=== PATIENT | female | born 1965 | race Caucasian/White ===

== ENCOUNTER 2017-06-08 10:08 | Emergency (ER) | payer BC ==
[~2017-06-08] VITALS: Ht 157.5 cm; Wt 79.0 kg
[~2017-06-08 10:08] MED LIST: CITA20 PO; FOLI1 PO; LISI-363 PO; METO25 PO; THIA100T PO
[2017-06-08 10:09] VITALS: BP 146/81; PULSE 88; RESP 16; TEMP 98.6; O2SAT 98
--- NOTE | 2017-06-08 11:22 | PD ---
HPI Chief Complaint: Injury Time Seen by Provider: 11:07 Travel History International Travel<30 days: No Contact w/Intl Traveler<30days: No Traveled to known affect area: No History of Present Illness HPI This is a 52-year-old right-hand dominant female who reports a history of diabetes and hypertension. She presents for evaluation of right thumb pain. Symptoms started 2 weeks ago. She reports a throbbing/burning/numbness sensation in her distal right thumb which is constant but worse with palpation or when her right hand is held passively. She reports that 2 weeks ago she was having trouble with an earring stuck in her right ear and she was pressing very forcefully with her right thumb in an effort to dislodge it. She doesn't know if this is related or not. She also reports that on a daily basis she has to work with a [employer] lift which also puts a lot of pressure in her right thumb. She went to an urgent care center today and was referred here for further evaluation. She has no other complaints at this time. PFSH Past Medical History Arthritis: No Asthma: No Autoimmune Disease: No Blood Disorders: No Anxiety: No Depression: Yes Heart Rhythm Problems: No Cancer: No Cardiovascular Problems: Yes High Cholesterol: No Chemotherapy: No Chest Pain: No Congestive Heart Failure: No COPD: No Cerebrovascular Accident: No Diabetes: Yes Endocrine: Yes Gastrointestinal Disorders: Yes GERD: Yes Glaucoma: No Genitourinary: No Headaches: Yes Hiatal Hernia: No Hypertension: Yes Immune Disorder: No Implanted Vascular Access Dvce: No Musculoskeletal: No Neurologic: Yes Psychiatric: Yes Reproductive: No Respiratory: Yes Migraines: Yes Myocardial Infarction: Yes (2 ME'S) Radiation Therapy: No Seizures: Yes Sleep Apnea: No Thyroid Disease: No Ulcer: No PNEUMOCCOCAL Vaccine (Year): 2 ?: Not Menopausal: Yes Past Surgical History Abdominal Surgery: Yes ( cholecystectomy) AICD: No Arteriovenous Shunt: No 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)) Section: Yes Cholecystectomy: Yes Ear Surgery: No Endocrine Surgery: No Eye Surgery: No Genitourinary Surgery: No Gynecologic Surgery: Yes (c- section x2) Insulin Pump: No Joint Replacement: No Oral Surgery: No Pacemaker: No Thoracic Surgery: No Other Surgery: Yes (GB REMOVED 17 YRS AGO) Social History Alcohol Use: Yes Tobacco Use: Yes Substance Use: No Allergies-Medications (Allergen,Severity, Reaction): Coded Allergies: morphine (Unverified Allergy, Severe, 06/08/17) Reported Meds & Prescriptions Reported Meds & Active Scripts Active Clindamycin (Clindamycin HCl) 300 Mg Cap 300 Mg PO TID Lisinopril 20 mg (Lisinopril) 20 Mg Tab 1 Tab PO BID Metoprolol Tartrate 25 mg (Metoprolol Tartrate) 25 Mg Tab 25 Mg PO Q12HR Thiamine HCl 100 Mg Tab 100 Mg PO DAILY Folate 1 Mg Tab (Folic Acid) 1 Mg Tab 1 Mg PO DAILY Celexa 20 Mg Tab (Citalopram Hydrobromide) 20 Mg Tab 10 Mg PO DAILY Review of Systems Musculoskeletal: Positive: Pain Skin: Positive Other (positive for soft tissue swelling, bruising) Physical Exam Narrative GENERAL: Well-developed well-nourished female in no acute distress SKIN: Warm and dry. There is focal ecchymosis and soft tissue swelling to the finger pad of the right thumb. It is tender to palpation. HEAD: Atraumatic. Normocephalic. EYES: Pupils equal and round. No scleral icterus. No injection or drainage. ENT: No nasal bleeding or discharge. Mucous membranes pink and moist. NECK: Trachea midline. No JVD. CARDIOVASCULAR: Regular rate and rhythm. No murmur appreciated. RESPIRATORY: No accessory muscle use. Clear to auscultation. Breath sounds equal bilaterally. MUSCULOSKELETAL: Skin as noted above with focal ecchymosis and soft tissue swelling in the finger pad. The patient has pain with range of motion of the right thumb. Capillary refill is diminished in the right thumb however pulse oximetry is 100%. NEUROLOGICAL: Awake and alert. No obvious cranial nerve deficits. Motor grossly within normal limits. Normal speech. Data Data Last Documented VS Vital Signs Date Time Temp Pulse Resp B/P (MAP) Pulse Ox O2 Delivery O2 Flow Rate FiO2 06/08/17 12:24 17 69 165/71 (102) 97 06/08/17 11:25 Room Air 06/08/17 10:09 98.6 Orders Orders Finger ([id number]) (06/08/17 ) Ed Discharge Order (06/08/17 12:14) MDM Medical Decision Making Medical Screen Exam Complete: Yes Emergency Medical Condition: Yes Medical Record Reviewed: Yes Differential Diagnosis Hematoma, contusion, peripheral vasospasm, fracture, foreign body, felon Narrative Course The patient appears to have focal ecchymosis and soft tissue swelling to the finger pad of the right thumb causing diminished capillary refill in the right thumb however pulse oximetry in the right thumb is 100%. X-ray imaging was obtained revealing no acute abnormalities. She may have developed this swelling secondary to using the [employer] lift at work and she is requesting a note to excuse this activity. Plan is to treat the patient with a short course of antibiotics and have her follow up with a hand specialist. She is agreeable to this plan. Diagnosis Primary Impression: Swelling of right thumb Referrals: Boston Albrecht MD Departure Forms: Tests/Procedures, Work Release Special Instructions: Please excuse from [employer] lift duties until cleared by hand surgeon. Additional Instructions: Follow-up with a hand specialist such as Dr. Albrecht in 3-4 days, call to make an appointment. Take antibiotic as prescribed. Cool compresses to the affected area several times a day 10-15 minutes at a time. Return for any acutely new or worsening symptoms. Med/Other Pt SpecificInfo: Prescription(s) given Scripts Clindamycin (Clindamycin) 300 Mg Cap 300 MG PO TID for Infection, #21 CAP 0 Refills Prov: Nat Elizondo MD 06/08/17 Disposition: 01 DISCHARGE HOME Condition: Stable [address] [place] Jun 08, 2017 11:22
[2017-06-08] MEDS ORDERED: CLIN300C5 PO (12:08)
--- NOTE | 2017-06-08 12:09 | RADRPT ---
EXAM DATE/TIME: 06/08/2017 11:47 [facility] COMPARISON: No previous studies available for comparison. INDICATIONS : Right hand, first digit pain. No known injury. MEDICAL HISTORY : None. SURGICAL HISTORY : None. ENCOUNTER: Initial ACUITY: 1 month PAIN SCORE: 7/10 LOCATION: Right hand, first digit. FINDINGS: Examination of the first digit of the right hand demonstrates no evidence of fracture or dislocation. No radiopaque foreign bodies are seen. The soft tissues are intact. CONCLUSION: No acute fracture. Otto Hdz MD on June 08, 2017 at 12:07 Board Certified Radiologist. This report was verified electronically.
[2017-06-08 12:24] VITALS: BP 165/71
--- NOTE | 2017-06-08 13:25 | PD ---
Data Data Last Documented VS Vital Signs Date Time Temp Pulse Resp B/P (MAP) Pulse Ox O2 Delivery O2 Flow Rate FiO2 06/08/17 12:24 17 69 165/71 (102) 97 06/08/17 11:25 Room Air 06/08/17 10:09 98.6 Orders Orders Finger ([id number]) (06/08/17 ) Ed Discharge Order (06/08/17 12:14) MDM Supervised Visit with ELIZABETH: Yes Narrative Course The history, exam, and medical decision-making in the associated midlevel provider note were completed with my assistance. I reviewed and agree with the findings presented. I attest that I had a [id number] encounter with the patient on the same day, and personally performed and documented my assessment and findings in the medical record. *My assessment and Findings: This is a 52-year-old female who presents to the emergency department with a swollen red thumb. It is mostly the dorsal pad of the thumb not swollen. She saw an urgent care that referred her here to evaluate for arterial insufficiency. On my exam the thumb has reasonable capillary refill, pulse ox on the finger is normal, and the thumb is not discolored or cold. I suspect the swelling is due to either trauma or possible early infection. Patient will be placed on antibiotics and will follow with hand surgery. I do not think there is an emergent etiology of her symptoms. Diagnosis Primary Impression: Swelling of right thumb Referrals: Boston Albrecht MD Patient Instructions: General Instructions Departure Forms: Work Release, Special Instructions: Please excuse from [employer] lift duties until cleared by hand surgeon. Tests/Procedures Additional Instruction: Follow-up with a hand specialist such as Dr. Albrecht in 3-4 days, call to make an appointment. Take antibiotic as prescribed. Cool compresses to the affected area several times a day 10-15 minutes at a time. Return for any acutely new or worsening symptoms. Scripts Clindamycin (Clindamycin) 300 Mg Cap 300 MG PO TID for Infection, #21 CAP 0 Refills Prov: Nat Elizondo MD 06/08/17 Disposition: 01 DISCHARGE HOME Condition: Stable Nat Elizondo MD Jun 08, 2017 13:25
== END 2017-06-08 12:26 | disposition home or self-care (01) ==
LOC: NEPD 10:08
DX: M79.89 Other specified soft tissue disorders (principal); E11.9 Type 2 diabetes mellitus without complications; I10 Essential (primary) hypertension; F32.9 Major depressive disorder, single episode, unspecified; K21.9 Gastro-esophageal reflux disease without esophagitis; I25.2 Old myocardial infarction; R56.9 Unspecified convulsions; Z79.899 Other long term (current) drug therapy; Z72.0 Tobacco use
CPT/HCPCS: 73140; 99283